=== PATIENT | female | born 1995 | race Caucasian/White ===

== ENCOUNTER 2017-05-02 15:09 | Outpatient (CLI) | payer OTHER ==
--- NOTE | 2017-05-02 17:33 | ULT ---
OB ULTRASOUND GREATER THAN 14 WEEKS COMPLETE: 05/02/17 HISTORY: 21-year-old female for size and dates evaluation. A single viable intrauterine fetus is noted in breech presentation. The placenta is anterior. Amnioti c fluid is within normal limits. heart rate 160 beats per minute. Cervical length 3.2 cm. ANATOMY: Visualized brain, four chamber heart, three vessel cord, stomach, bladder, kidneys, spine and e xtremity regions are unremarkable. BIOMETRY: BPD 3.9 cm - - 17 weeks, 6 days Head circumference 14.7 cm - - 17 weeks, 6 days Abdominal circumference 12.5 cm - - 18 weeks, 1 day Femur length 2.6 cm - - 17 weeks, 6 days IMPRESSION: Single viable intrauterine fetus at 17 weeks, 6 days with an EMMA of 10/04/17. Estimated weight 2 18 grams at 52nd percentile. POS: [facility]
== END 2017-05-02 15:10 | disposition home or self-care (01) ==
LOC: NAV ULT 15:09
PROVIDERS: ATTEND Family Medicine
DX: Z34.02 Encounter for supervision of normal first pregnancy, second trimester (principal); Z3A.17 17 weeks gestation of pregnancy
CPT/HCPCS: 76805

== ENCOUNTER 2017-08-01 16:04 | Outpatient (CLI) | payer OTHER ==
--- NOTE | 2017-08-01 18:08 | ULT ---
OB ULTRASOUND: 08/01/17 INDICATIONS: Assess growth. There is a viable single intrauterine . Gestational age by ultrasound is 30 weeks, 6 days. B iometry measurements are consistent as below. BPD 31 week, 5 day HC 31 week, 5 day AC 31 week, 2 day FL 30 week, 6 day EFW 1715 grams. Placenta: Anterior. heart rate: 146 beats per minute. Amniotic fluid: Within normal range. JAQUAN recorded at 16.6 cm. Presentation: Vertex. Intracranial contents, and stomach identified. A total anatomic survey was not performed. IMPRESSION: 30 week, 6 day gestation by ultrasound. Biometry measurements are consistent. POS: [facility]
== END 2017-08-01 16:05 | disposition home or self-care (01) ==
LOC: NAV ULT 16:04
PROVIDERS: ATTEND Family Medicine
DX: O26.843 Uterine size-date discrepancy, third trimester (principal); Z3A.30 30 weeks gestation of pregnancy
CPT/HCPCS: 76816